=== PATIENT | male | born 2000 | race Caucasian/White ===

== ENCOUNTER 2022-09-22 17:33 | Emergency (ER) | payer OTHER, SELFPAY ==
[2022-09-22 18:03] VITALS: BP 156/74; PULSE 98; RESP 18; TEMP 37.1; O2SAT 100
[2022-09-22 18:04] VITALS: BP 156/74; PULSE 98; RESP 18; TEMP 37.1; O2SAT 100
--- NOTE | 2022-09-22 18:28 | ED.GENADULT ---
HPI - General Adult General Chief complaint: Upper Respiratory Infection Stated complaint: rt ear pain Time Seen by Provider: 09/22/22 18:20 Source: patient, RN notes reviewed and old records reviewed Mode of arrival: ambulatory Limitations: no limitations History of Present Illness HPI narrative: 22 year old male presents to [facility] [place] [facility] care accompanied by significant other with complaints of right ear pain for one week duration with increased pain, decreased hearing, and ringing in his ear since Monday. Patient states that he had a cold last week and still has a little sinus congestion and drainage also. Patient reports that he has not noted any drainage from his right ear but throbbing pain at times, has used some OTC ear drops without improvement. MD complaint: right ear pain Onset (ago): week(s) (1) Severity scale (1-10): 3 Treatments prior to arrival: other (OTC ear drops) Related Data Allergies Allergy/AdvReac Type Severity Reaction Status Date / Time No Known Allergies Allergy Verified 09/22/22 18:04 Review of Systems Review of Systems: CONSTITUTIONAL: Denies malaise, chills, sweats, or fever. EYES: Denies visual changes, redness, or discharge. ENT: Reports rhinorrhea, congestion,no sinus pain, right otalgia with decreased hearing and ringing in right ear, no sore throat. CARDIOVASCULAR: Denies chest pain, palpitations, or edema. RESPIRATORY: Reports no cough.? Denies dyspnea. GASTROINTESTINAL: Denies abdominal pain, nausea, vomiting, diarrhea SKIN: Denies rash or itching. MUSCULOSKELETAL: Denies myalgia. NEUROLOGIC: Denies headache. All systems reviewed & are unremarkable except as noted in HPI and below PMFSH Past Medical History Medical History (Updated 09/23/22 @ 11:05 by Roro Busch NP) Hypertension Social History Social History (Updated 09/23/22 @ 10:56 by Roro Busch NP) Smoking status: Never smoker Alcohol intake: current Alcohol use details: social Substance use: never Living arrangements: with family Gender identity (if verbalized by the patient): Male Comments At time of signature, agree with nursing past medical, surgical, social and family history. There is no relevant family history pertinent to the presenting complaint Exam Narrative: GENERAL: Well-appearing, well-nourished, and in no acute distress. HEAD: Normocephalic EYES: PERRLA, conjunctivae clear ENT: Nares clear, turbinates edematous and erythematous, clear discharge. Mucous membranes moist. Right TM red with some yellow drainage noted, ear canal red and excoriated, Left TM pearly orellana with dull light reflex; no tragal tenderness. Oropharynx erythematous without lesions. Tonsils not enlarged and without exudate, no drooling, no hoarseness, no trismus, uvula midline. ringing in right ear with decreased hearing voiced NECK: Supple. No lymphadenopathy CHEST: Clear to auscultation, breath sounds equal. No wheezing, rhonchi, rales, or stridor. No respiratory distress, speaks in full sentences.no acute cough SAO2 100% on room air HEART: Regular rate and rhythm. No murmur heard. SKIN: Warm, dry, no rash. NEURO: Alert and oriented x3. PSYCH: Normal mood and affect Course Course Emergency Course: Patient is aware of diagnosis, understands and agrees to treatment plan.? Anticipatory guidance given.? Patient agrees to follow-up as directed and is aware of reasons to seek care at the emergency department. Portions of this record may have been created with voice recognition software Level of Care: Express Care Visit Vital Signs Vital signs: Vital Signs Temperature 37.1 C 09/22/22 18:03 Pulse Rate 98 09/22/22 18:03 Respiratory Rate 18 09/22/22 18:03 Blood Pressure 156/74 H 09/22/22 18:03 Pulse Oximetry 100 09/22/22 18:03 Oxygen Delivery Room Air 09/22/22 18:03 Temperature 37.1 C 09/22/22 18:04 Pulse Rate 98 09/22/22 18:04 Respiratory Rate 18 09/22/22 18:
== END 2022-09-22 18:49 | disposition home or self-care (01) ==
PROVIDERS: Emergency Provider Registered Nurse
DX: H66.91 Otitis media, unspecified, right ear (principal); H60.91 Unspecified otitis externa, right ear; I10 Essential (primary) hypertension
CPT/HCPCS: 99203; G0463